=== PATIENT | male | born 1990 | race African-American/Black ===

== ENCOUNTER 2017-08-09 07:41 | Emergency (ER) | payer OTHER ==
[~2017-08-09] VITALS: Ht 190.5 cm; Wt 83.5 kg
[2017-08-09 07:41] VITALS: BP 154/67
[~2017-08-09 07:41] MED LIST: LORTABELXR PO
[2017-08-09] MEDS ORDERED: DOXYCYCLINE 10100 MG PO (08:04)
== END 2017-08-09 08:05 | disposition home or self-care (01) ==
LOC: ER 07:41
DX: Z48.01 Encounter for change or removal of surgical wound dressing (principal); F17.210 Nicotine dependence, cigarettes, uncomplicated